=== PATIENT | female | born 1950 | race Caucasian/White ===

== ENCOUNTER 2022-04-26 15:03 | Outpatient (CLI) | payer MEDICARE, SELFPAY ==
[2022-04-26 10:07] LABS: Albumin* 3.9 g/dL (3.3-5.0); Chloride* 106 mmol/L (96-114); Potassium* 4.6 mmol/L (3.6-5.1); Sodium* 142 mmol/L (135-149)
[2022-04-26 10:09] LABS: Carbon Dioxide* 28 mmol/L (20-32); Cholesterol* 195 mg/dL (90-199); Creatinine* 0.8 mg/dL (0.5-1.5); Estimated Glomerular Filt Rate 77 ml/min
[2022-04-26 10:10] LABS: Aspartate Amino Transferase* 35 U/L (12-35); Bilirubin Total* 0.5 mg/dL (0.1-1.5); Blood Urea Nitrogen* 23 mg/dL (7-30); Glucose* 99 mg/dL (60-115); Total Protein* 6.5 g/dL (6.0-8.3)
[2022-04-26 10:21] LABS: Alanine Aminotransferase* 25 U/L (4-35); Alkaline Phosphatase* 89 U/L (40-150); HDL Cholesterol* 55 mg/dL (>=50); LDL Cholesterol Calculated 86 mg/dL (<100); Triglycerides* 268 mg/dL (40-149)
[2022-04-26 10:31] LABS: Vitamin D 25 Hydroxy* 29 ng/mL (30-80)
== END 2022-04-26 15:04 | disposition home or self-care (01) ==
PROVIDERS: PCP Family Medicine; Visit Provider Family Medicine
DX: E78.5 Hyperlipidemia, unspecified (principal); E03.9 Hypothyroidism, unspecified; R79.89 Other specified abnormal findings of blood chemistry; E55.9 Vitamin D deficiency, unspecified
CPT/HCPCS: 80053; 80061; 82306; 82652; 84443

== ENCOUNTER 2023-02-14 09:05 | Outpatient (CLI) | payer MEDICARE, SELFPAY | END 2023-02-14 09:06 | disposition home or self-care (01) | LOC: NFLDREF 09:06 | PROVIDERS: PCP Family Medicine; Visit Provider Family Medicine | DX: R31.9 Hematuria, unspecified (principal); R31.0 Gross hematuria | CPT/HCPCS: 87086; 87186 ==

== ENCOUNTER 2023-04-15 08:41 | Outpatient (CLI) | payer MEDICARE, SELFPAY | END 2023-04-15 08:42 | disposition home or self-care (01) | PROVIDERS: PCP Family Medicine; Visit Provider Family Medicine | DX: Z00.00 Encounter for general adult medical examination without abnormal findings (principal); E55.9 Vitamin D deficiency, unspecified; E03.9 Hypothyroidism, unspecified; E66.3 Overweight; E78.5 Hyperlipidemia, unspecified; M79.7 Fibromyalgia | CPT/HCPCS: 80053; 80061; 82306; 84443 ==

== ENCOUNTER 2023-05-01 21:05 | Emergency (ER) | payer MEDICARE, SELFPAY ==
[2023-05-01] VITALS (13 sets, daily range): BP systolic 144–186; BP diastolic 70–107; PULSE 83–92; RESP 18; TEMP 36.7; O2SAT 94–99; BMI 29.1
--- NOTE | 2023-05-01 21:21 | ED_ITS ---
HPI - General Adult General Chief complaint: Shortness of Breath/Dyspnea Stated complaint: heart issue, difficulty breathing Time Seen by Provider: 05/01/23 21:16 History of Present Illness HPI narrative: CC: Left Sided Chest Pain, Shortness of Breath pt. with symptoms that started around 2044. was watching tv at the time. denies heart history, fevers , n/v, diarrhea . 73-year-old woman presenting to the emergency department with abrupt onset of some shortness of breath which seems to been accompanied with just being unresponsive to her 's queries. This lasted briefly and apparently occurred twice. She did not actually pass out. There was a sense of brief p ressure or discomfort in her chest, briefly breathing heavily. Was otherwise well prior to the. Endorses later that they had been drinking alcohol this evening. Was otherwise in usual state of health. No headache. No visual disturbance noted. She does not really seem to recall these episodes. There is no seizure history. No nausea. Feels well at this time. Occurred while at rest. Related Data Home Medications Medication Instructions Recorded Confirmed latanoprost 0.005 % eye drops 1 drp ophthalmic (eye) QDAY 04/15/23 04/15/23 estradiol 0.05 mg/24 hr weekly 1 patch transdermal QWEEK 05/07/23 transdermal patch Previous Rx's Medication Instructions Recorded cyclobenzaprine 10 mg tablet 10 mg PO .Bedtime as needed PRN 04/15/23 muscle spasm #30 tabs gabapentin 600 mg tablet 600 mg PO .hs #90 tabs 04/15/23 levothyroxine 100 mcg tablet 100 mcg PO QDAY #90 tabs 04/15/23 montelukast 10 mg tablet 10 mg PO .Bedtime #90 tabs 04/15/23 rosuvastatin 5 mg tablet 5 mg PO QDAY #90 tabs 04/15/23 valacyclovir 1 gram tablet 2,000 mg (2 x 1 gram) PO BID PRN 04/15/23 cold sore #12 tabs cholecalciferol (vitamin D3) 1,250 1,250 mcg PO QWEEK #8 caps 05/03/23 mcg (50,000 unit) capsule Allergies Allergy/AdvReac Type Severity Reaction Status Date / Time meperidine Allergy Severe Tongue Verified 04/15/23 07:55 swelling, itchy and red on body Review of Systems Status of ROS: Reports: 6 or more systems reviewed and unremarkable except as noted in History and below [facility] Medical History 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) Menopausal vaginal dryness ?N95.1 - Menopausal and female climacteric states (ICD-10) Surgical History S/P partial resection of colon ?Z90.49 - Acquired absence of other specified parts of digestive tract (ICD- 10) History of lumbar fusion ?Z98.1 - Arthrodesis status (ICD-10) Social History Narrative: Ex-smoker quit at age 33 before then 20 pack years What is your current living situation?: I presently have a place to live Problems where you live: no known problems In the past 12 months, utilities in danger of being shut off: no In past 12 months, lack of transportation kept you from medical appts, meetings, work, or getting things needed for daily living: no In the past 12 mos, have been you worried that your food would run out before you had money to buy more?: never true In the past 12 mos, the food you bought just didn't last and you didn't have money to buy more?: never true Smoking Status: Former smoker Do you use any of these nicotine containing products: None Second hand tobacco smoke exposure: No How often do you have a drink containing alcohol: never How often do you have six or more drinks on one occasion: Never AUDIT-C Alcohol total score: 0 Non-prescribed substance use: denies use How often does anyone, including family, friends and others, physically hurt you : never How often does anyone, including family, friends and others, insult or talk down to you: never How often does anyone, including family, friends and others, threaten you with harm: never How often does anyone, including family, friends and others, scream or curse at you: never Little interest or pleasure in doing things: not at all Feeling down, depressed, or hopeless: not at all service: No Exam Narrative: Exam Narrative: Pleasant. Seems distracted but quite personable. NAD. Breathing easily. Lungs are clear. Cranial nerves 2-12 intact. Moving all extremities with good strength without difficulty. Well-perfused peripherally. Blood pressure is noted to be somewhat elevated. Heart with regular rate and rhythm. No murmur rub or gallop identified. No reproducible discomfort to palpation of her chest wall. Abdomen is soft and nontender. Const: Vital Signs, click to edit/add: Vital Signs - 24 hr 05/01/23 21:16 05/01/23 21:22 05/01/23 21:30 Temperature 98.1 F Pulse Rate 84 85 Pulse Rate [Right Pulse Oximeter] 89 Respiratory Rate 18 Blood Pressure Blood Pressure [Ri ght Upper Arm] 186/103 H Pulse Oximetry 99 96 98 Oxygen Delivery Me thod Room Air 05/01/23 21:32 05/01/23 21:33 05/01/23 22:00 Temperature Pulse Rate 88 86 83 Pulse Rate [Right Pulse Oximeter] Respiratory Rate Blood Pressure 157/107 H Blood Pressure [Ri ght Upper Arm] Pulse Oximetry 97 97 96 Oxygen Delivery Me thod 05/01/23 22:02 05/01/23 22:30 05/01/23 22:32 Temperature Pulse Rate 84 89 92 Pulse Rate [Right Pulse Oximeter] Respiratory Rate Blood Pressure 144/97 H 148/77 H Blood Pressure [Ri ght Upper Arm] Pulse Oximetry 96 94 94 Oxygen Delivery Me thod 05/01/23 23:00 05/01/23 23:02 05/01/23 23:30 Temperature Pulse Rate 90 89 88 Pulse Rate [Right Pulse Oximeter] Respiratory Rate Blood Pressure 160/88 H Blood Pressure [Ri ght Upper Arm] Pulse Oximetry 95 97 96 Oxygen Delivery Me thod 05/01/23 23:32 Temperature Pulse Rate 86 Pulse Rate [Right Pulse Oximeter] Respiratory Rate Blood Pressure 146/70 H Blood Pressure [Ri ght Upper Arm] Pulse Oximetry 96 Oxygen Delivery Me thod Documenting provider has reviewed patient's vital signs: yes Course Vital Signs Vital signs: Initial Vital Signs Temperature 98.1 F 05/01/23 21:16 Temperature Source Temporal Artery Scan 05/01/23 21:16 Pulse Rate 89 05/01/23 21:16 Respiratory Rate 18 05/01/23 21:16 Blood Pressure 186/103 H 05/01/23 21:16 Blood Pressure Mean 130 H 05/01/23 21:16 Blood Pressure Position Sitting 05/01/23 21:16 Pulse Oximetry 99 05/01/23 21:16 Oxygen Delivery Method Room Air 05/01/23 21:16 Vital Signs Temperature 98.1 F 05/01/23 21:16 Pulse Rate 89 05/01/23 21:16 Respiratory Rate 18 05/01/23 21:16 Blood Pressure 186/103 H 05/01/23 21:16 Pulse Oximetry 99 05/01/23 21:16 Oxygen Delivery Method Room Air 05/01/23 21:16 Temperature 98.1 F 05/01/23 21:16 Pulse Rate 86 05/01/23 23:32 Respiratory Rate 18 05/01/23 21:16 Blood Pressure 146/70 H 05/01/23 23:32 Pulse Oximetry 96 05/01/23 23:32 Oxygen Delivery Method Room Air 05/01/23 21:16 Medical Decision Making MDM Narrative Medical decision making narrative: Certainly could have been a dysrhythmia of some sort. Possibly absence seizure. TIA though recovering nearly immediately. Ischemic cardiovascular issue q uestion. Pulmonary embolus or vascular disruption otherwise though without any residual or persistent symptoms. Will monitor on monitoring specialist oximetry and check cardiac labs among others Chest x-ray also was unremarkable by my read. EKG below. Alcohol level was 0.15. Inquired after this resulted. Odalis Calderon was without further event generally comfortable. Increasingly lucid. frequently and persistently exiting the room asking to depart. One troponin was collected and negative. They did not want to wait for a recheck. Ambulated easily from the emergency department I suspect mostly alcohol related event of unclear significance. See patient discharge plan. Lab Data Lab results reviewed: Yes I reviewed the patient's lab results Labs: Lab Results 05/01/23 05/01/23 05/01/23 Range/Units 21:25 21:47 22:35 WBC 7.25 (4.50-11.00) K/uL RBC 4.43 (4.00-5.20) m/uL Hgb 13.6 (12.0-16.0) gm/dL Hct 41.3 (33.0-51.0) % MCV 93 (80-100) fL MCH 31 (26-34) pg MCHC 33 (32-36) gm/dL RDW Coeff of [place] 13.0 (11.5-15.5) % Plt Count 190 (140-440) K/uL Neut % (Auto) 40.5 L (42.0-72.0) % Lymph % (Auto) 50.5 H (20-44) % [place] % (Auto) 5.9 (0.0-11.0) % Eos % (Auto) 2.1 (0.0-7.0) % Baso % (Auto) 0.3 (0.0-3.0) % Neut # (Auto) 2.90 (1.7-7.0) K/uL Lymph # (Auto) 3.70 H (0.90-2.90) K/uL [place] # (Auto) 0.40 (0.00-0.90) K/UL Eos # (Auto) 0.15 (0.00-0.50) K/uL Baso # (Auto) 0.02 (0.00-0.30) K/uL Abs Immat Gran (auto) 0.05 (0.00-0.30) K/uL Imm/Tot Granulo (auto) 0.7 % D-Dimer Quant (PE/DVT) 0.30 (0.00-0.50) ug/ml Sodium 143 (135-149) mmol/L Potassium 3.9 (3.6-5.1) mmol/L Chloride 108 (96-114) mmol/L Carbon Dioxide 22 (20-32) mmol/L Anion Gap 13 (7-15) mEq/L BUN 15 (7-30) mg/dL Creatinine 0.8 (0.5-1.5) mg/dL Estimated Creat Clear 45.50 Estimated GFR 77 ml/min Glucose 98 (60-115) mg/dL Calcium 9.2 (8.4-10.6) mg/dL Magnesium 2.4 (1.5-2.6) mg/dL Troponin I < 0.01 L (0.01-0.04) ng/mL C-Reactive Protein < 0.5 L (0.5-1.0) mg/dL NT-Pro-B Natriuret Pep 101 pg/mL Ethyl Alcohol 0.15 H (0.01-0.03) % SARS-CoV-2 (PCR) Negative SARS-CoV-2 (Negative) Influenza Type A (PCR) Negative PCR FLU A (Negative) Influenza Type B (PCR) Negative PCR FLU B (Negative) RSV (PCR) Negative PCR RSV (Negative) POC Troponin I 0.00 L (0.01-0.04) ng/ml ECG Data Attestation: I personally reviewed and interpreted this ECG as follows: (Normal sinus rhythm rate of 88 no acute ischemic changes.) Discharge Plan Discharge Clinical Impression: Shortness of breath, Atypical chest pain Patient Disposition: Home w/ Parent or Adult Condition: Improved Additional Instructions: Take care with your alcohol consumption. Return for recurrence of your chest pain; I would consider recurrence much more significant in this case. Consider follow-up in your primary care clinic to discuss this event further and to explore necessity of further workup. Prescriptions: No Action latanoprost 0.005 % drops 1 drp ophthalmic (eye) QDAY Patient Comments: [NO ORIGINAL SIG] cyclobenzaprine 10 mg tablet 10 mg PO .Bedtime as needed PRN (Reason: muscle spasm) Qty: 30 0RF gabapentin 600 mg tablet 600 mg PO .hs Qty: 90 3RF levothyroxine 100 mcg tablet 100 mcg PO QDAY Qty: 90 3RF montelukast 10 mg tablet 10 mg PO .Bedtime Qty: 90 3RF rosuvastatin 5 mg tablet 5 mg PO QDAY Qty: 90 3RF valacyclovir 1 gram tablet 2,000 mg PO BID PRN (Reason: cold sore) Qty: 12 2RF Rx Instructions: Take at first sign of cold sore. 2 tabs, then repeat in 12hrs. cholecalciferol (vitamin D3) 1,250 mcg (50,000 unit) capsule 1,250 mcg PO QWEEK Qty: 8 0RF estradiol 0.05 mg/24 hr patch weekly 1 patch transdermal QWEEK Follow Up/Referrals: Mj Noe MD [Primary Care Provider] - Stand Alone Forms: RUN Info Instructions
--- NOTE | 2023-05-01 22:24 | CRLHL7_ITS ---
For Patients: As a result of the Century Cures Act, medical imaging exams and procedure reports are released immediately into your electronic medical record. You may view this report before your referring provider. If you have questions, please contact your health care provider. HISTORY: Transient left-sided chest pain. COMPARISON: None available FINDINGS: A portable erect AP view of the chest was obtained at 22 34 hours. The lungs are clear. No focal or diffuse infiltrates are present. There is no sign of pneumothorax or abnormality of the ribs to correlate with the history of chest pain. The heart is normal in size. The mediastinum is normal in appearance. The osseous structures are normal in appearance for the patient`s age. IMPRESSION: Normal portable chest single view. Dictated by Lexa Catherine MD @ 05/01/2023 11:06:37 PM (Electronically Signed)
[2023-05-01 22:40] LABS: Chloride* 108 mmol/L (96-114); Potassium* 3.9 mmol/L (3.6-5.1); Sodium* 143 mmol/L (135-149)
[2023-05-01 22:41] LABS: Basophils Absolute Auto 0.02 K/uL (0.00-0.30); Basophils Percent Auto 0.3 % (0.0-3.0); Eosinophils Absolute Auto 0.15 K/uL (0.00-0.50); Eosinophils Percent Auto 2.1 % (0.0-7.0); Hematocrit 41.3 % (33.0-51.0); Hemoglobin* 13.6 gm/dL (12.0-16.0); Immature Granulocytes Abs Auto 0.05 K/uL (0.00-0.30); Immature Granulocytes Pct Auto 0.7 %; Lymphocytes Percent Auto 50.5 % (20-44); Mean Corpuscular HGB Conc 33 gm/dL (32-36); Mean Corpuscular Hemoglobin 31 pg (26-34); Mean Corpuscular Volume 93 fL (80-100); Monocytes Percent Auto 5.9 % (0.0-11.0); Neutrophils Percent Auto 40.5 % (42.0-72.0); Platelet Count* 190 K/uL (140-440); Red Blood Count 4.43 m/uL (4.00-5.20); White Blood Count* 7.25 K/uL (4.50-11.00)
[2023-05-01 22:43] LABS: Creatinine* 0.8 mg/dL (0.5-1.5); Estimated Glomerular Filt Rate 77 ml/min
[2023-05-01 22:44] LABS: Anion Gap 13 mEq/L (7-15); Blood Urea Nitrogen* 15 mg/dL (7-30); Calcium* 9.2 mg/dL (8.4-10.6); Carbon Dioxide* 22 mmol/L (20-32); Ethanol* 0.15 % (0.01-0.03); Glucose* 98 mg/dL (60-115); Magnesium* 2.4 mg/dL (1.5-2.6)
[2023-05-01 22:45] LABS: Slide Review Reflex No
[2023-05-01 23:02] LABS: C Reactive Protein* < 0.5 mg/dL (0.5-1.0); NT Pro B Type NatriureticPept* 101 pg/mL; Troponin I* < 0.01 ng/mL (0.01-0.04)
[2023-05-01 23:20] LABS: PCR FLU A Negative PCR FLU A (Negative); PCR FLU B Negative PCR FLU B (Negative); PCR RSV Negative PCR RSV (Negative)
[2023-05-01 23:49] LABS: SARS PCR* Negative SARS-CoV-2 (Negative)
== END 2023-05-01 23:55 | disposition home or self-care (01) ==
PROVIDERS: Emergency Provider Family Medicine; PCP Family Medicine
DX: R07.9 Chest pain, unspecified (principal); R06.02 Shortness of breath
CPT/HCPCS: 36415; 71045; 80048; 82077; 83735; 83880; 84484; 85025; 85379; 86140; 87631; 93005; 99284; 99285

== ENCOUNTER 2023-07-22 12:04 | Outpatient (CLI) | payer MEDICARE, SELFPAY ==
[2023-07-22 14:53] LABS: PCR FLU A Negative PCR FLU A (Negative); PCR FLU B Negative PCR FLU B (Negative); PCR RSV Negative PCR RSV (Negative); SARS PCR* Negative SARS-CoV-2 (Negative)
== END 2023-07-22 12:05 | disposition home or self-care (01) ==
LOC: KYNREF 12:04
PROVIDERS: PCP Family Medicine; Visit Provider Nurse Practitioner Family
DX: J06.9 Acute upper respiratory infection, unspecified (principal)
CPT/HCPCS: 87631